=== PATIENT | female | born 1995 | race Caucasian/White ===

== ENCOUNTER 2023-03-31 00:05 | Inpatient (IN) | payer MEDICAID, SELFPAY ==
[2023-03-30 23:52] VITALS: TEMP 36.5
[2023-03-30 23:53] VITALS: BP 127/81; PULSE 79; PULSE 81; O2SAT 98
[2023-03-31] VITALS (37 sets, daily range): BP systolic 105–135; BP diastolic 61–79; PULSE 66–90; RESP 15–18; TEMP 36.3–36.8; O2SAT 96–100; BMI 28.4
[2023-03-31] MEDS: 0.9% Saline Lock 10 ML Syringe IV ×2 (00:34→02:12)
[2023-03-31 00:48] LABS: Absolute Lymphocyte Count 3.03 X10^3/uL (0.83-4.51); Absolute Neutrophil Count 6.5 X10^3/uL (2.0-7.7); Basophil# 0.01 X10^3/uL; Basophil% 0.1 % (0-1); Eosinophil# 0.09 X10^3/uL; Eosinophils% 0.9 % (0-5); Lymphocyte # 3.03 X10^3/ul (0.83-4.51); Lymphocyte % 29.5 % (19-41); Mean Corp Hgb Conc 32.4 g/dL (32-36); Mean Corpuscular Volume 92.6 fL (81-99); Mean Platelet Vol. 13.1 fl (6.2-12.0); Monocyte# 0.63 X10^3/uL; Monocyte% 6.1 % (0-10); NRBC Flagged by Analyzer 0 % (0-5); Neutrophil # 6.48 X10^3/uL (2.7-7.7); Neutrophil % 63.1 % (47-70); POSITIVE COUNT YES; Platelet Count 149 K/mm3 (150-450); RBC Distribution Width CV 12.6 % (11.6-14.6); RBC Distribution Width SD 42.5 fl (35.1-43.9); Red Blood Count 3.67 M/mm3 (4.2-5.4); White Blood Count 10.3 K/mm3 (4.4-11.0)
[2023-03-31 00:51] LABS: Differential Indicated SCAN CRITERIA MET
[2023-03-31] MEDS: Lidocaine 1% (20 ml mdv) 20 ML Vial INFILT (01:14)
[2023-03-31] MEDS: Oxytocin 15 Units/NS 250ml 15 UNITS/250 ML IV.SOLN 334 UNITS IV (01:16)
[2023-03-31 01:21] LABS: Platelet Estimate SLT DEC (ADEQ)
[2023-03-31 01:30] LABS: Syphilis Antibodies Non-reactive
--- NOTE | 2023-03-31 01:36 | EX.PCM.OBRPT ---
Maternal Data Information Final GURINDER: 03/30/23 Gestational age: 40 1/7 Vaginal Delivery Maternal Presentation Maternal Presentation: Active Labor Operative Information Date of Procedure: 03/31/23 Pre-Operative Diagnosis: labor Post-Operative Diagnosis: same Surgery / Procedure Performed: Spontaneous Vaginal Delivery Type of Anesthesia: Local with 1% Lidocaine (15 cc) Special Medications: none Drain: - (none) Estimated Blood Loss: 200 Time of Delivery: 01:11 Findings Description of Procedure: A vigorous female was delivered MIKE over a second-degree perineal laceration. The remainder the was delivered with maternal pushing and gentle traction only in less than 15 seconds. The Pitocin infusion was initiated for active management of the third stage. The cord was clamped and cut after cord pulsations ceased. The infant was attended to by the waiting nursing staff. The placenta was delivered spontaneously and intact. The cervix and vagina were intact. The second-degree perineal laceration was repaired with 2-0 Vicryl suture in a running standard fashion. Sponge and needle counts were correct. A vaginal sweep was completed by me. Presentation: SAM Amniotic Membrane Rupture Type: Spontaneous Amniotic Fluid Description: Clear Placental Delivery Description: Spontaneous Placenta Disposition: [facility] Cord Vessel Description: 3 Vessels Cord Entanglement: None Infant A Gender: Female ([place]) (1 minute): 8 (5 minute): 9 Delayed Cord Clamping: Yes Post Vaginal Delivery Medications Given After Delivery: IV Pitocin Episiotomy Description: None Laceration: 2nd degree Complication Complications: None
--- NOTE | 2023-03-31 01:39 | PCM.HP.OB ---
HPI - General General Date of Admission: 03/31/23 Date of Service: 03/31/23 Chief Complaint: labor HPI Narrative GOPI FLOREZ, is a 27 F who presents 5 para 1-1-2-1 who presents at term with spontaneous labor. This is complicated date by history of 23-week previous demise, 2 previous miscarriages and 1 previous full-term spontaneous vaginal delivery without complications. Past history significant for history of anxiety, rubella nonimmune, migraine headaches, allergic rhinitis. Maternal Data Information Final GURINDER: 03/30/23 Gestational age: 40 07/20 PFSH PFSH Home Medications etonogestrel 0.12 mg-ethinyl estradiol 0.015 mg/24 hr vaginal ring (NuvaRing) 1 ea VG QWEEK 03/17/17 [History Last Taken Unknown] famotidine 20 mg tablet 20 mg PO BID ##28 03/17/17 [Rx Last Taken Unknown] Allergy/AdvReac Type Severity Reaction Status Date / Time No Known Allergies Allergy Verified 03/31/23 00:27 Social History Smoking Status: Never smoker ROS Constitutional Constitutional: Denies fatigue, fever(s) or malaise Eyes Eyes: Denies change in vision ENT HEENT: Denies dizziness or headache(s) Cardiovascular Cardiovascular: Denies chest pain, dyspnea or lightheadedness Respiratory/Chest Respiratory/Chest: Denies cough or dyspnea Gastrointestinal Gastrointestinal: Denies change in bowel habits Genitourinary Genitourinary: Denies burning urination or genital lesions Integumentary Integumentary: Denies rash Neurologic Neurologic: Denies confusion, dizziness, headache(s), numbness or weakness Vital Signs Vital Signs Vital Signs: 03/30/23 23:53 03/30/23 23:53 03/30/23 23:52 Temperature Temperature Source Temporal Pulse Rate 81 Blood Pressure 127/81 H BP Systolic 127 BP Diastolic 81 Pulse Ox 03/30/23 23:53 03/30/23 23:53 03/30/23 23:52 Temperature 97.7 F L Temperature Source Pulse Rate 79 Blood Pressure BP Systolic BP Diastolic Pulse Ox 98 03/31/23 01:22 03/31/23 01:22 03/31/23 01:25 Temperature Temperature Source Pulse Rate 90 82 Blood Pressure 120/65 BP Systolic 120 BP Diastolic 65 Pulse Ox 03/31/23 01:25 03/31/23 01:30 03/31/23 01:30 Temperature Temperature Source Pulse Rate 82 Blood Pressure BP Systolic BP Diastolic Pulse Ox 99 99 03/31/23 01:36 03/31/23 01:36 03/31/23 01:35 Temperature Temperature Source Pulse Rate 72 Blood Pressure 126/66 H BP Systolic 126 BP Diastolic 66 Pulse Ox 99 Weight Weight: 77.428 kg Body Mass Index (BMI) 28.4 Physical Exam Const alert and no apparent distress General Appearance: cooperative HEENT normocephalic Resp normal respiratory effort Cardio regular rate GI soft to palpation GI Narrative: gravid, nontender, appropriate for gestational age Extremity no calf tenderness General Extremity: edema Skin no wounds Rashes: No rashes noted Psych activity/motor behavior normal Labs Labs Labs: Blood Type O POSITIVE Antibody Screen NEGATIVE Hct 34.0 % (37-47) L Hgb 11.0 g/dL (12.0-15.0) L Syphilis Total Ab Non-reactive Assessment & Plan (1) 40 weeks gestation of : PLAN: 27-year-old multigravida female in spontaneous labor. Expectant management for vaginal delivery. Estimated weight is less than 4500 g and pelvis clinically adequate to expect vaginal delivery. May have routine pain control measures as needed and desired during labor. Patient did not desire IM Pitocin after delivery. After discussion with patient she did accept IV Pitocin only for hemorrhage prophylaxis. (2) Spontaneous onset of labor:
[2023-03-31] MEDS: Ibuprofen 600 MG Tablet PO ×4 (02:05→22:45)
[2023-03-31] MEDS: Acetaminophen 500 MG Tablet 1000 MG PO ×4 (02:05→22:45)
[2023-03-31] MEDS: Benzocaine/Lanolin/Aloe Vera 1 SPRAY EACH TOPICAL (02:06)
--- NOTE | 2023-03-31 09:28 | NURSING ---
MMR vaccine explained and offered. Written info offered. Pt refused vaccine.
[2023-03-31] MEDS: Senna/Docusate Sodium 1 Tablet PO (10:57)
[2023-04-01 01:23] VITALS: BP 104/65; PULSE 74; RESP 18
[2023-04-01] MEDS: Acetaminophen 500 MG Tablet 1000 MG PO ×2 (06:50→15:36)
--- NOTE | 2023-04-01 08:53 | DS.PCM_ITS ---
Providers Date of Admission: 03/31/23 Primary Care Physician: Dr. Joana Mcmullen MD Reason For Visit: VAGINAL DELIVERY Diagnosis Discharge Diagnosis (1) 40 weeks gestation of : Status: Acute Code(s): Z3A.40 - 40 weeks gestation of Plan D/c home Medications at Discharge Home Medications famotidine 20 mg tablet 20 mg PO BID ##28 03/17/17 [id number] fum 65 mg iron-folic acid 1 mg-dha 250 mg oral laney (Vitafol- OB+DHA) 1 pkg PO DAILY 03/31/23 acetaminophen 500 mg tablet 1,000 mg (2 x 500 mg) PO Q6H PRN PRN Pain 1-10 Or Fever #0 tabs 04/01/23 ibuprofen 600 mg tablet 600 mg PO Q6H PRN PRN Pain Score 1-3 #0 tabs 04/01/23 Hospital Course Summary of Care Provided Minutes Spent on Discharge: 10 Weight / BMI Weight Weight: 170 lb 11.2 oz Body Mass Index (BMI) 28.4 ABG / Lab / Microbiology Data 03/31/23 00:34 D/C Instructions Discharge Diet: No restrictions Discharge Activity: May Shower May resume sexual activity in: 6 weeks Weight Bearing Status: Weight bearing as tolerated Call your doctor if you observe: Fever of 101 or Higher, Coldness, Increased Pain, Change in Color, Inability to urinate, Inability to have a bowel movement, Using more than 1 pad per hour, Shortness of breath, Dizziness, Fainting spells, Chest pain, Increased palpitations (irregular heartbeat), Calf discomfort and Uncontrolled pain Please Follow Up With: Lucy Abernathy MD When: Follow up in 2 and 6 weeks for visits. Meaningful Use Info Meaningful Use Diagnoses (Choose all that apply): None applicable Discharge Plan Admission Admit Date/Time: 03/31/23 00:05 Primary Reason for Your Visit: Vaginal delivery Attending Provider: Lucy Abernathy Primary Care Provider: Joana Mcmullen Discharge Orders/Prescriptions Prescriptions: New acetaminophen 500 mg Tablet 1,000 mg PO Q6H PRN PRN (Reason: Pain 1-10 Or Fever) Qty: 0 0RF ibuprofen 600 mg Tablet 600 mg PO Q6H PRN PRN (Reason: Pain Score 1-3) Qty: 0 0RF Continued famotidine 20 MG tablet 20 mg PO BID Qty: 28 0RF Vitafol-OB+DHA 65-1-250 mg combo pack 1 pkg PO DAILY Patient Comments: TAKE 1 PACKET BY MOUTH ONCE DAILY Discontinued etonogestrel-ethinyl estradiol [NuvaRing] 1 EACH ring 1 ea VG QWEEK Referrals / Follow Up: Joana Mcmullen MD [Primary Care Provider] - Disposition Disposition (needs filled in before D/C Order can be placed): Home, Self Care
--- NOTE | 2023-04-01 08:53 | PCM.PN.OB ---
Subjective Subjective Denies complaints Objective Data Objective Data Vital Signs: Vital Signs Temp Pulse Resp BP Pulse Ox O2 Del Method 98 F 74 18 104/65 98 Room Air 03/31/23 20:25 04/01/23 01:23 04/01/23 01:23 04/01/23 01:23 03/31/23 15:58 04/01/23 01:23 Oxygen Delivery Method Room Air Weight: 170 lb 11.2 oz Body Mass Index (BMI) 28.4 Intake & Output: Intake and Output for Last 24 Hours 03/30/23 03/31/23 04/01/23 23:59 23:59 23:59 Intake Total 235.7 / 235.7 Output Total 660 / 660 Balance -424.3 / -424.3 Lab / Micro Data 03/31/23 00:34 Physical Exam Const alert, oriented x3 and no apparent distress HEENT normocephalic GI soft to palpation, non-tender and non-distended GI Narrative: fundus firm, mid & below umbilicus Extremity normal to inspection and no calf tenderness Assessment & Plan (1) 40 weeks gestation of : COMMENT: PPD#1 PLAN: Plan D/c home
[2023-04-01 10:15] VITALS: BP 107/70; PULSE 65; RESP 16; TEMP 36.6; O2SAT 97
[2023-04-01] MEDS: Ibuprofen 600 MG Tablet PO (11:05)
[2023-04-01 15:45] VITALS: BP 106/66; PULSE 68; RESP 16; TEMP 36.7; O2SAT 97
== END 2023-04-01 15:45 | disposition home or self-care (01) | DRG 560 ==
LOC: WPOUT 00:09 → WP 00:09
PROVIDERS: Admitting Provider Obstetrics & Gynecology; PCP Internal Medicine; Referring Provider Obstetrics & Gynecology; Visit Provider Obstetrics & Gynecology
DX: O26.23 Pregnancy care for patient with recurrent pregnancy loss, third trimester (principal); Z37.0 Single live birth; O70.1 Second degree perineal laceration during delivery; Z3A.40 40 weeks gestation of pregnancy
CPT/HCPCS: 59025; 59050; 85025; 86780; 86850; 86900; 86901; 99221; A4216; G0378

== ENCOUNTER 2025-06-16 08:05 | Day surgery (SDC) | payer MEDICAID, SELFPAY ==
--- NOTE | 2025-06-14 10:49 | HP.PCM_ITS ---
History and Physical Date of Admission: 06/16/25 Expand All Collapse AllGYNECOLOGY HISTORY AND PHYSICAL SERVICE DATE: 06/10/2025 SERVICE TIME: 1600 SubjectiveHISTORY OF THE PRESENT ILLNESSThis 29 year old :6 Para:2 with SAB. US with no pole x 2. HCG 26,000. Requests suction D&C The patient has the following comorbidities: * Continue current outpatient treatment plan and current medications for these conditions, except where otherwise noted. HISTORY:Past Medical HistoryPAST MEDICAL HISTORYDiagnosisDate•E ndometriosis •Generalized anxiety jkttvoki78/10/2014•Migraine •Patellofemoral xyijtzgl43/5/2011 followed by rheumatology•Second degree laceration of perineum, delivered, current hospitalization ([facility])07/24/2020•Evcozejz76/5/2014 PAST SURGICAL HISTORYPAST SURGICAL HISTORYProcedureLateralityDate•LAPS ABD PRTM&OMENTUM DX W/WO SPEC BR/WA SPX 07/28/2017 excision of endometriosis•PAST SURGICAL HISTORY OF wisdom teeth Family HistoryFAMILY HISTORY ProblemRelationAge of Onset•other (IBS)Mother •No Known ProblemsFather •No Known ProblemsBrother •AutismBrother •No Known ProblemsBrother •HypertensionMaternal Grandmother •HeartMaternal Grandmother •DiabetesMaternal Grandmother •D iabetesMaternal Grandfather •Blood ClotsMaternal Grandfather [Social History] [Social History]Tobacco Use•Smoking status:Never Passive exposure:Never•Smokeless tobacco:NeverVaping Use•Vaping status:Never Used Substance Use Topics•Alcohol use:Not Currently Comment: once every three to four months but not to excess•Drug use:NeverOB History Gravida6 Para3 Term2 Preterm1 AB2 Living2 SAB2 IAB0 Ectopic0 Multiple0 Live Births2 Allergies AllergiesAllergenReactions•Seasonal AllergiesOther: See Comments Sneezing, watery, and headaches.•Zoloft [Sertraline Hcl]Other: See Comments throat felt tight, heart racing Current Outpatient Medications on File Prior to Visit MedicationSig•omega-3 DHA-EPA (FISH OIL) 1,200 (144-216) mg capsuleTake 1 capsule by mouth daily with breakfast.•cholecalciferol, vitamin D3, (VITAMIN D3 ORAL)Take by mouth once daily.•Prenat Vit Comb.88-Flys-SN-DHA (VITAFOL-OB+DHA) 65-1-250 mgTake 1 Packet by mouth once daily. No current facility-administered medications on file prior to visit. ROS:GENERAL: No weight loss, malaise or fevers.RESPIRATORY: Negative for cough, hemoptysis, wheezing, COPD, dyspnea or shortness of breathGYN: Negative for abnormal vaginal bleeding, abnormal vaginal dischargeThe remainder of the review of systems is negative. Objective SENSITIVE EXAMINATION CONSENT:Participation of a fellow, resident, medical student, or advanced practice provider student in performing the sensitive examination was discussed with the patient or authorized agency service representative. The patient or authorized agency service representative has agreed to proceed with the sensitive examination. PHYSICAL EXAM:Blood pressure 100/60, weight 62.8 kg (138 lb 6.4 oz), last menstrual period 04/04/2025, currently .GENERAL: In no apparent distress.CARDIOVASCULAR: Regular rate and rhythm.PULMONARY: Normal effortABDOMEN: Soft, appropriately tender, non-distended.PELVIC: Deferred @[email or web address]@@[email or web address]@Lines, Drains, and Airways None Current Anti- Infective Meds (From admission, onward) None Current Anticoagulants & Antiplatelets (From admission, onward) None DATA: Diagnostic tests reviewed for today's visit: Most recent labsMost recent imaging Assessment & PlanMiscarriage (HCC)Desires Suction D&C Assessment & Plan Assessment/Plan (1) Anembryonic :
--- NOTE | 2025-06-14 15:54 | PAT.ANE_ITS ---
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 When Was Last Pacemaker Check QUESTION #4 FULL TEXT: You/Your Family Experience fever (hyperthermia) with Anesthesia Last Oral Intake Last Oral intake: Last Oral Intake NPO since Meds taken in AM with sips of water? 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 Female Yes 06/14/25 14:20 HX of Motion Sickness Yes 06/14/25 14:20 HX of N/V After Surgery No 06/14/25 14:20 Non-Smoker Yes 06/14/25 14:20 Duration of Surgery greater No 06/14/25 14:20 than 60 minutes Number of Risk Factors 3 06/14/25 14:20 PONV Score Moderate Risk 06/14/25 14:20 Height & Weight Height & Weight: Anesthesia: Height & Weight Height 5 ft 5 in 03/31/23 00:25 Respiratory Assessment Respiratory Assessment - geotechnical department manager: Respiratory Tract Infection Hx - geotechnical department manager Hx Respiratory Tract Infection No 06/14/25 14:20 STOP Sleep Apnea STOP Sleep Apnea - geotechnical department manager: STOP Sleep Apnea - geotechnical department manager Hx Hypertension No 06/14/25 14:20 Hx Sleep Apnea No 06/14/25 14:20 CPAP BIPAP Do you snore loudly (louder No 06/14/25 14:20 than talking or can be heard Do you often feel tired/ No 06/14/25 14:20 fatigued/ sleepy during daytime? Has anyone observed you stop No 06/14/25 14:20 breathing during sleep? STOP Results Negative 06/14/25 14:20 QUESTION #5 FULL TEXT : Do you snore loudly (louder than talking or can be heard through closed doors)? 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 Specify any problems Hx of Preganancy in last 3 No 06/14/25 14:20 Months Nurse Filling Out Transfusion [email or web address] 06/14/25 14:20 & Questions: Date: 06/14/25 06/14/25 14:20 Time: 14:22 06/14/25 14:20 Patient unable to answer at this time (ie. confused, unrespo /Reproduction History /Reproductive History - geotechnical department manager: /Reproductive Hx- geotechnical department manager Hx Now No 06/14/25 14:20 Gestational Age (in weeks): EDC: Hx Hx Para Hx Section SAB No 06/14/25 14:20 Does the father of the baby or his family experience fever w Father of the baby Malignant Hypertension history comment PFSH Medical History (Updated 06/14/25 @ 14:26 by Marques Betts) Wears glasses Migraine headache Gastric reflux Non-smoker Stillborn, normal Stillborn, normal Headache Anxiety Home Medications Medication Instructions Recorded Last Taken Type vit no.10-iron fum 65 1 pkg PO DAILY pregnanc y 03/31/23 03/30/23 Histo ry mg-folic acid 1 mg-dha 250 mg oral pack (Vitafol-OB+DHA) cholecalciferol (vitamin D3) 125 125 mcg PO DAILY 09/07 Unknown History mcg (5,000 unit) tablet (Vitamin D3) omega 8-kpl-plh-fish oil 1,200 mg 2 cap PO DAILY 06/14 Unknown History (144 mg-216 mg) capsule (Fish Oil) Allergy/AdvReac Type Severity Reaction Status Date / Time sertraline (From Zoloft) AdvReac PT UNSURE Verified 06/14/25 14:18 OF REACTION Surgical History (Updated 06/14/25 @ 14:26 by Marques Betts) H/O wisdom tooth extraction H/O laparoscopy Social History Smoking Status: Never smoker Audit: Pertinent Findings Pertinent Findings EKG Perinent findings: 03/17/2017. Normal sinus rhythm. Recommendation Anesthesia Recommendation Anesthesia recommendation: OPTIMIZED for anesthesia
[2025-06-16] VITALS (9 sets, daily range): BP systolic 97–107; BP diastolic 61–74; PULSE 69–88; RESP 16–18; TEMP 36.1–36.4; O2SAT 97–100; BMI 22.9
[2025-06-16] MEDS: Lactated Ringers 500 ML IV (08:48)
[2025-06-16] MEDS: Ketorolac 30 MG/ML Syringe IV (08:51)
[2025-06-16] MEDS: Lactated Ringers 1,000 ML 15 ML IV (08:51)
--- NOTE | 2025-06-16 09:15 | PCM.PRE.AN2 ---
ASA Classification* ASA Classification ASA Classification: 2 Assessment & Plan Anesthesia* Anesthesia Assessment Anesthesia Assessment: Discussed sedation and/or anesthesia options, risks, benefits, and alternatives with patient/parents/legal guardian/POA. Questions invited. The patient/parents/legal guardian/POA seems to understand and agrees to proceed with anesthesia plan. Reviewed the physical assessment, medical history, allergy history and patient home medications list prior to surgery/procedure/anesthetic and documented any changes. Performed airway and anesthesia risk assessments. Anesthesia Type Anesthesia Type: MAC History Source History Obtained from:: Patient and Chart Anesthesia Focused Assessment* Temperature: 97 F Pulse Rate: 83 Blood Pressure: 105/74 Respiratory Rate: 16 Pulse Ox: 100 Oxygen Delivery Method: Room Air Airway Assessment Mouth opens: >3 cm Mallampati Score: I Teeth Condition: Chipped/Broken (Small chip on front incisor.) Neck Range of motion (ROM): Full ROM Labs Anesthesia Preop lab: CBC WBC, (4.4-11.0) 10.3 K/mm3 03/31/23, 00:34 RBC, (4.2-5.4) 3.67 M/mm3 L 03/31/23, 00:34 Hgb, (12.0-15.0) 11.0 g/dL L 03/31/23, 00:34 Hct, (37-47) 34.0 % L 03/31/23, 00:34 Plt Count, (150-450) 149 K/mm3 L 03/31/23, 00:34 CHEMISTRY Potassium, (3.5-5.1) 3.5 mmol/L 03/17/17, 22:10 Sodium, (136-145) 140 mmol/L 03/17/17, 22:10 BUN, (7-18) 11 mg/dL 03/17/17, 22:10 Creatinine, (0.55-1.02) 0.88 mg/dL 03/17/17, 22:10 Glucose, (70-110) 91 mg/dL 03/17/17, 22:10 COAG HCG, Quant Pending Today, 08:35 Pre-Assessment Diagnosis/Proposed Procedure Planned Operative Procedure(s): SUCTION DILATION AND CURRETAGE Anesthesia History 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 When Was Last Pacemaker Check QUESTION #4 FULL TEXT: You/Your Family Experience fever (hyperthermia) with Anesthesia Last Oral Intake Last Oral intake: Last Oral Intake NPO since 23:00 06/16/25 08:40 Meds taken in AM with sips of No 06/16/25 08:40 water? 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 Female Yes 06/14/25 14:20 HX of Motion Sickness Yes 06/14/25 14:20 HX of N/V After Surgery No 06/14/25 14:20 Non-Smoker Yes 06/14/25 14:20 Duration of Surgery greater No 06/14/25 14:20 than 60 minutes Number of Risk Factors 3 06/14/25 14:20 PONV Score Moderate Risk 06/14/25 14:20 Height & Weight Height & Weight: Anesthesia: Height & Weight Height 5 ft 5 in 06/16/25 08:40 Weight: 62.6 kg 06/16/25 08:40 Body Mass Index (BMI) 22.9 06/16/25 08:40 Respiratory Assessment Respiratory Assessment - steam plant operator: Respiratory Tract Infection Hx - steam plant operator Hx Respiratory Tract Infection No 06/14/25 14:20 STOP Sleep Apnea STOP Sleep Apnea - steam plant operator: STOP Sleep Apnea - steam plant operator Hx Hypertension No 06/14/25 14:20 Hx Sleep Apnea No 06/14/25 14:20 CPAP BIPAP Do you snore loudly (louder No 06/14/25 14:20 than talking or can be heard Do you often feel tired/ No 06/14/25 14:20 fatigued/ sleepy during daytime? Has anyone observed you stop No 06/14/25 14:20 breathing during sleep? STOP Results Negative 06/14/25 14:20 QUESTION #5 FULL TEXT : Do you snore loudly (louder than talking or can be heard through closed doors)? 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 Specify any problems Hx of Preganancy in last 3 No 06/14/25 14:20 Months Nurse Filling Out Transfusion [email or web address] 06/14/25 14:20 & Questions: Date: 06/14/25 06/14/25 14:20 Time: 14:22 06/14/25 14:20 Patient unable to answer at this time (ie. confused, unrespo /Reproduction History /Reproductive History - steam plant operator: /Reproductive Hx- steam plant operator Hx Now No 06/14/25 14:20 Gestational Age (in weeks): EDC: Hx Hx Para Hx Section SAB No 06/14/25 14:20 Does the father of the baby or his family experience fever w Father of the baby Malignant Hypertension history comment Active Medications Active Medications: Current Medications Generic Name Dose Route Start Last Admin Trade Name Eri PRN Reason Stop Dose Admin Acetaminophen 1,000 mg 06/16/25 09:30 06/16/25 08:52 Acetaminophen 500 Mg Tablet PO 06/16/25 09:31 1,000 mg PREOP ONE Administration Doxycycline Monohydrate 200 mg 06/16/25 09:30 06/16/25 08:52 Doxycycline 100 Mg Capsule PO 06/16/25 09:31 200 mg PREOP ONE Administration Lactated Ringer's 1,000 mls @ 15 mls/hr 06/16/25 08:30 06/16/25 08:51 IV 15 mls/hr .Q48H DEREJE Administration Ketorolac Tromethamine 30 mg 06/16/25 09:30 06/16/25 08:51 Ketorolac 30 Mg/Ml Syringe IV 06/16/25 09:31 30 mg PREOP ONE Administration [facility] Medical History Wears glasses Migraine headache Gastric reflux Non-smoker Stillborn, normal Stillborn, normal Headache Anxiety Home Medications Medication Instructions Recorded Last Taken Type vit no.10-iron fum 65 1 pkg PO DAILY 03/31/23 03/30/23 History mg-folic acid 1 mg-dha 250 mg oral pack (Vitafol-OB+DHA) cholecalciferol (vitamin D3) 125 125 mcg PO DAILY 06/14/25 Unknown History mcg (5,000 unit) tablet (Vitamin D3) omega 2-mdh-cjg-fish oil 1,200 mg 2 cap PO DAILY 06/14/25 Unknown History (144 mg-216 mg) capsule (Fish Oil) Allergy/AdvReac Type Severity Reaction Status Date / Time sertraline (From Zoloft) AdvReac PT UNSURE Verified 06/16/25 08:47 OF REACTION Surgical History H/O wisdom tooth extraction H/O laparoscopy Social History Smoking Status: Never smoker Review of Systems (Anesthesia) ROS Narrative System reviewed and no additional complaints, except as documented.
--- NOTE | 2025-06-16 09:30 | POC_PTH ---
PATIENT: GOPI FLOREZ LOC: [facility] [place] U#:[id number] AGE/SX: 29/F ROOM: RE06/16/[address]: Dr. Lucy Abernathy MD : 1995 BED: DIS: 06/16/2025 SPEC #: [id number] RECD: 06/16/25 11:14 STATUS: ALPHONSE REQ #: [id number] AMBER: 06/16/25 09:[address]: Lucy Abernathy DEPT: SURGICAL PATHOLOGY RECD BY: Chelly Ni ENTERED: 06/16/25 13:41 SP TYPE: PROD CONC OTHR DR: No Primary Care Phys Tissues: Product of conception, NOS Procedures: Surgery Specimen Level IV HEADER OPERATION: Dilation and curettage, suction PRE-OP DIAGNOSIS: Anembryonic TISSUE SUBMITTED: Products of conception MICROSCOPIC DIAGNOSIS A. Uterine contents, dilation and suction curettage: - Acutely inflamed and focally necrotic decidua, immature placental villi, and clotted blood, consistent with products of conception MICROSCOPIC DESCRIPTION Slides are reviewed. GROSS DESCRIPTION A. Received in formalin labeled with the patient's name and date of . Designated as " products of conception" is a 7.6 x 7.5 x 1.8 cm aggregate of pink-purple to red irregular tissue and clotted blood. parts are not identified. Health Director sections are submitted in 3 cassettes. MS 06/16/2025PT:[id number]
--- NOTE | 2025-06-16 09:47 | PCM.DC ---
Discharge Instructions DC O2, CPAP, BIPAP needs Home O2 Discharge instructions: No Dressing / Incision Discharge Activity: May Drive (06/17/25) Return to work on:: 06/17/25 May shower in (days): 1 May resume sexual activity in: 2 weeks Lifting Restrictions: none Dressing / Incision Call your doctor if your incision/area has: Sudden Increased Bleeding and Foul Smelling Discharge Call your doctor if you observe: Fever of 101 or Higher and Using more than 1 pad per hour (for 2 hrs in a row) Follow Up Care Please Follow Up With: Lucy Abernathy MD When: Follow up in our office in 2-4 weeks or as needed. Call [phone] or send a [employer] message as needed. Test Results: Test results from this visit will be discussed in further detail at your follow-up appointment, if applicable. Discharge Plan Admission Primary Reason for Your Visit: Suction dilatoin and curettage Attending Provider: Lucy Abernathy Primary Care Provider: Care Physician,No Primary Instructions Print Language: Greenlandic Discharge Orders/Prescriptions Prescriptions: No Action Vitafol-OB+DHA 65-1-250 mg combo pack 1 pkg PO DAILY Patient Comments: TAKE 1 PACKET BY MOUTH ONCE DAILY omega 8-pta-qst-fish oil [Fish Oil] 1,200 (144-216) mg capsule 2 cap PO DAILY cholecalciferol (vitamin D3) [Vitamin D3] 125 mcg (5,000 unit) tablet 125 mcg PO DAILY Referrals / Follow Up: Care Physician,No Primary [Primary Care Provider, Medical] Disposition Disposition (needs filled in before D/C Order can be placed): Home, Self Care
[2025-06-16] MEDS: Midazolam 2 MG/2 ML Syringe IV (09:48)
[2025-06-16] MEDS: Lidocaine 1% (5 ml sdv) 5 ML Vial IV (09:49)
--- NOTE | 2025-06-16 10:02 | OP.PCM_ITS ---
Operative Report (Standard) Operative Information Date of Procedure: 06/16/25 Pre-Operative Diagnosis: missed , anembryonic Post-Operative Diagnosis: same Surgery/Procedure Performed: suction D&C mixer operator helper hot metal: Yes Instructional Manager: Joselin Joyce MS3 Tasks completed by first aid attendant: Retracting Additional licensed occupational therapy assistant?: No Type of Anesthesia: MAC/Supplemental/Local RN Documented Start/Stop Times: Operation Date: 06/16/25 09:30 Case Time Into Pre-Op 06/16/25 08:17 Out of Pre-Op 06/16/25 09:41 Procedure Start Time: 09:55 Procedure Stop Time: 10:00 Select all DRAINS/GRAFTS/IMPLANTS that apply: None Special Medications: none Estimated Blood Loss: 20 Fluids Replaced: 700 cc LR Specimen collected: Yes Description of specimen(s) removed: Products of conception Description of surgery: The patient was taken to the operating room where she was prepped and draped in a dorsolithotomy position. A bimanual examination was done and confirmed the uterus to be 7 weeks size and retroverted. A weighted speculum was placed in the vagina and the anterior lip of the cervix was grasped with a single-tooth tenaculum. The cervix was dilated serially. A 7 mm suction curette was placed to the uterine fundus and the suction was created. Several passes were made to remove clots and products of conception. When minimal tissue was returning a gentle sharp curettage was then done of the uterine cavity. The uterine cry was appreciated and another gentle pass was made with the suction curette. At this point there is no active bleeding from the uterus and minimal blood and no further products of conception were removed. The instruments removed from the cervix and the cervix was observed and no active bleeding was identified. The tenaculum was removed off the cervix and hemostasis of the tenaculum site was assured. Made of the instruments removed from the vagina and the vaginal sweep was completed by me. Sponge and needle counts were correct. The patient was taken to the recovery room in stable condition. Surgical Findings: 7 week size retroverted uterus, normal cervix and vagina, empty irregular gestational sac on brief US before procedure Complications Complications: No Admit VTE Documentation VTE Present on Admission: No VTE Mechan Device Prophylaxis: SCD's VTE Pharm Prophylaxis ordered?: No
--- NOTE | 2025-06-16 10:11 | PCM.POST.ANE ---
Anesthesia: Postop Eval I Current Vital Signs Temperature: 97.5 F Pulse Rate: 72 Blood Pressure: 97/61 Respiratory Rate: 16 Pulse Ox: 97 Oxygen Delivery Method: Room Air Assessment Airway patent: Yes Spontaneous unlabored respirations: Yes Mental status: Awake and Calm nausea: No Vomiting: No Anesthesia Complication: No Fluid Hydration Crystalloid volume administer (ml): 500 Total IV fluid infused: 500 Progress Note Anesthesia document: Postop Eval 1 completed: Yes
[2025-06-16 10:20] LABS: hCG Titer Quant., Serum 18582 mIU/mL (<9 non-preg)
--- NOTE | 2025-06-16 12:56 | POSTOPAN2_ITS ---
Anesthesia Postop Eval I Sum Postop Eval Completion status Anesthesia document: Postop Eval 1 completed: Yes Anesthesia Postop Eval I Summary Anesthesia Postop Eval I Summary: Anesthesia Postop Eval I: Assessment Summary Airway patent Yes 06/16/25 10:12 CORRECTIONAL PROGRAM [email or web address] Spontaneous unlabored Yes 06/16/25 10:12 CORRECTIONAL PROGRAM SPECIALIST.JDEF respirations Mental status Awake,Calm 06/16/25 10:12 CORRECTIONAL PROGRAM SPECIALIST.JDEF nausea No 06/16/25 10:12 CORRECTIONAL PROGRAM SPECIALIST.JDEF Vomiting No 06/16/25 10:12 CORRECTIONAL PROGRAM SPECIALIST.JDEF Anesthesia Postop Eval I: Fluid Summary Crystalloid volume administer 500 06/16/25 10:12 CORRECTIONAL PROGRAM [email or web address].JDEF (ml) Colloids volume administered ( ml) Blood Product volume administered (ml) Total IV fluid infused 500 06/16/25 10:12 CORRECTIONAL PROGRAM SPECIALIST.JDEF Anesthesia Postop Eval I: Summary Notes Anesthesia Complication No 06/16/25 10:12 CORRECTIONAL PROGRAM SPECIALIST.[email or web address] Anesthesia Complication Comment: Post-operative progress note Anesthesia: Postop Eval II Evaluation Mental status: Awake and Calm Pain Level: 2 nausea: No Vomiting: No Complications Anesthesia Complication: No
--- NOTE | 2025-06-16 12:56 | PCM.POSTANE2 ---
Anesthesia Postop Eval I Sum Postop Eval Completion status Anesthesia document: Postop Eval 1 completed: Yes Anesthesia Postop Eval I Summary Anesthesia Postop Eval I Summary: Anesthesia Postop Eval I: Assessment Summary Airway patent Yes 06/16/25 10:12 BRASS [email or web address] Spontaneous unlabored Yes 06/16/25 10:12 BRASS [email or web address] respirations Mental status Awake,Calm 06/16/25 10:12 BRASS [email or web address] nausea No 06/16/25 10:12 BRASS [email or web address].JDEF Vomiting No 06/16/25 10:12 BRASS [email or web address] Anesthesia Postop Eval I: Fluid Summary Crystalloid volume administer 500 06/16/25 10:12 BRASS [email or web address] (ml) Colloids volume administered ( ml) Blood Product volume administered (ml) Total IV fluid infused 500 06/16/25 10:12 BRASS [email or web address] Anesthesia Postop Eval I: Summary Notes Anesthesia Complication No 06/16/25 10:12 BRASS [email or web address] Anesthesia Complication Comment: Post-operative progress note Anesthesia: Postop Eval II Evaluation Mental status: Awake and Calm Pain Level: 2 nausea: No Vomiting: No Complications Anesthesia Complication: No
== END 2025-06-16 11:15 | disposition home or self-care (01) ==
LOC: SDC 08:07 → AC 08:09
PROVIDERS: Referring Provider Obstetrics & Gynecology; Visit Provider Obstetrics & Gynecology
PROC: (CPT 59820; principal; 2025-06-16 09:15)
DX: O02.1 Missed abortion (principal); J44.9 Chronic obstructive pulmonary disease, unspecified; K21.9 Gastro-esophageal reflux disease without esophagitis; O99.511 Diseases of the respiratory system complicating pregnancy, first trimester; O99.611 Diseases of the digestive system complicating pregnancy, first trimester
CPT/HCPCS: 59820; 01965; 84702; 88305; J2405